=== PATIENT | male | born 2000 | race Caucasian/White ===

== ENCOUNTER 2021-04-25 15:16 | Emergency (ER) | payer OTHER, SELFPAY ==
[2021-04-25 15:17] VITALS: BP 133/71; PULSE 80; RESP 14; TEMP 36.5; O2SAT 99; BMI 24.5
[2021-04-25 15:31] LABS: Bedside Glucose 290 mg/dL (70-110)
--- NOTE | 2021-04-25 16:29 | EX.ED.DYSGE1 ---
HPI History of Present Illness Chief Complaint: Hyperglycemia Detail of Chief Complaint: Epigastric pain, nausea, vomiting Informant: patient Onset/Context/Timing Onset: Today Narrative Narrative: Patient presents via EMS for elevated blood sugar, nausea, and vomiting. Patient states he did not feel great this morning. He signed himself out of school early because he was feeling ill. He reports headache with mild body aches, epigastric pain, nausea, and vomiting. He states while driving to get having to stop to vomit. The furnace charging machine operator pulled him over and called EMS. His blood sugar was noted to be 303. Patient is a type I diabetic with an insulin pump. [facility] Medical History Diabetes type I Home Medications omeprazole 40 mg PO DAILY 14 Days #14 cap 04/25/21 [Rx Last Taken Unknown] ondansetron 4 mg PO Q8H PRN #10 tab 04/25/21 [Rx Last Taken Unknown] Allergy/AdvReac Type Severity Reaction Status Date / Time amoxicillin Allergy Hives Verified 04/25/21 15:20 Social History Smoking Status: Unknown if ever smoked ROS ROS ED Constitutional Constitutional ED: Denies chills or fever(s) Eyes Eyes: Denies blurry vision or change in vision ENT ENT ED: Reports sore throat Cardiovascular Cardiovascular: Denies chest pain or palpitations Respiratory/Chest Respiratory/Chest: Reports dyspnea; Denies cough or sputum Gastrointestinal Gastrointestinal: Reports abdominal pain, nausea and vomiting; Denies diarrhea Genitourinary Genitourinary ED: Denies dysuria Musculoskeletal Musculoskeletal: Reports myalgias; Denies arthralgias Integumentary Denies rash Neurologic Neurologic: Reports headache(s) Psychiatric Psychiatric: Denies anxiety or depression Allergic/Immunologic Allergic/Immunologic ED: Denies urticaria EXAM Physical Exam Const Vital Signs: 04/25/21 15:17 04/25/21 16:53 04/25/21 18:20 Temperature 97.7 F L Temperature Source Temporal Pulse Rate 80 Respiratory Rate 14 Blood Pressure 133/71 H 146/71 H 143/70 H Blood Pressure Mean 91 96 94 Pulse Ox 99 99 Oxygen Delivery Method Room Air Room Air Positive well nourished and well developed General Appearance ED: well developed HEENT Negative for trauma Eyes PERRL and EOMs intact bilaterally Neck supple Chest Wall inspection of chest normal and palpation of chest normal Resp normal respiratory effort and clear to auscultation bilaterally Cardio regular rate and regular rhythm GI non-tender Auscultation: hypoactive bowel sounds Palpation: soft Extremity normal to inspection Neuro oriented x3 Sensorium / Orientation: alert Psych mental status grossly normal Skin no rashes or lesions noted MDM MDM MDM Narrative Medical decision making narrative: Patient was given a liter IV fluid. He was given Zofran and Protonix. Lab work obtained. Lab Data Attestation: I reviewed the patient's lab results. Labs: Laboratory Results - last 24 hr 04/25/21 04/25/21 04/25/21 15:22 16:33 16:40 WBC 11.7 H RBC 4.97 Hgb 14.7 Hct 41.2 MCV 82.9 MCH 29.6 MCHC 35.7 RDW Std Deviation 34.7 L RDW Coeff of Marek 11.6 Plt Count 239 MPV 11.3 Immature Gran % (Auto) 0.300 Neut % (Auto) 90.0 H Lymph % (Auto) 6.2 L [place] % (Auto) 3.2 Eos % (Auto) 0.0 Baso % (Auto) 0.3 Absolute Neuts (auto) 10.6 H Absolute Lymphs (auto) 0.73 L Nucleated RBC % 0 Sodium Potassium Chloride Carbon Dioxide Anion Gap BUN Creatinine Estim Creat Clear Calc Est GFR (MDRD) Af Amer Est GFR (MDRD) Non-Af BUN/Creatinine Ratio Glucose Calcium Total Bilirubin Direct Bilirubin AST ALT Alkaline Phosphatase Total Protein Albumin Globulin Lipase Acetone Level POC Glucose 290 H 250 H 04/25/21 04/25/21 04/25/21 16:40 16:40 18:11 WBC RBC Hgb Hct MCV MCH MCHC RDW Std Deviation RDW Coeff of Marek Plt Count MPV Immature Gran % (Auto) Neut % (Auto) Lymph % (Auto) [place] % (Auto) Eos % (Auto) Baso % (Auto) Absolute Neuts (auto) Absolute Lymphs (auto) Nucleated RBC % Sodium 133 L Potassium 3.6 Chloride 99 Carbon Dioxide 25.0 Anion Gap 9 BUN 16 Creatinine 1.07 Estim Creat Clear Calc 107.43 Est GFR (MDRD) Af Amer 114 Est GFR (MDRD) Non-Af 94 BUN/Creatinine Ratio 15.0 Glucose 250 H Calcium 9.0 Total Bilirubin 0.60 Direct Bilirubin 0.16 AST 21 ALT 31 Alkaline Phosphatase 60 Total Protein 7.2 Albumin 4.2 Globulin 3.0 Lipase 56 L Acetone Level NEGATIVE POC Glucose 242 H Treatment and Re-Evaluation Comments:: Lab work reviewed. White count is mildly elevated, likely secondary to vomiting. Blood sugar is currently down to 242. Serum acetone is negative. On repeat exam patient states he feels significant improved after the IV medications. He is going to give himself a bolus of insulin from his pump for his blood sugars. Prescription for Zofran and Prilosec will be sent to pharmacy for him. Return instructions provided. Discharge Plan Triage Chief Complaint: Hyperglycemia ED Provider: Geetha Stuart Dx/Rx/DC Orders Clinical Impression: Hyperglycemia, Vomiting Instructions: ED Diabetic Hyperglycemia, ED Vomiting (Adult) Prescriptions: New ondansetron 4 mg tablet,disintegrating 4 mg PO Q8H PRN (Reason: nausea and vomiting) Qty: 10 RF: 0 omeprazole 40 mg capsule,delayed release(DR/EC) 40 mg PO DAILY 14 Days Qty: 14 RF: 0 Primary Care Provider: Care Physician,No Primary Referrals: Care Physician,No Primary [Primary Care Provider] - Activity Restrictions/Additional Instructions: Follow-up with your doctor in the next 5 to 7 days if not improving. Disposition Disposition: Home, Self Care
[2021-04-25 16:40] LABS: Bedside Glucose 250 mg/dL (70-110)
[2021-04-25] MEDS: 0.9% Normal Saline 1,000 ML 1000 ML IV (16:52)
[2021-04-25 16:53] VITALS: BP 146/71; O2SAT 99
[2021-04-25] MEDS: Ondansetron 4 MG/2 ML Vial IV (17:01)
[2021-04-25 17:03] LABS: Absolute Lymphocyte Count 0.73 X10^3/uL (0.83-4.51); Absolute Neutrophil Count 10.6 X10^3/uL (2.0-7.7); Basophil# 0.03 X10^3/uL; Basophil% 0.3 % (0-1); Hematocrit 41.2 % (40-54); Hemoglobin 14.7 g/dL (13.0-16.5); Lymphocyte # 0.73 X10^3/ul (0.83-4.51); Lymphocyte % 6.2 % (19-41); Mean Corp Hgb Conc 35.7 g/dL (32-36); Mean Corpuscular Hgb 29.6 pg (27.0-32.0); Mean Corpuscular Volume 82.9 fL (80-94); Mean Platelet Vol. 11.3 fl (6.2-12.0); Monocyte# 0.38 X10^3/uL; Monocyte% 3.2 % (0-10); NRBC Flagged by Analyzer 0 % (0-5); Neutrophil # 10.56 X10^3/uL (2.7-7.7); Platelet Count 239 K/mm3 (150-450); RBC Distribution Width CV 11.6 % (11.6-14.6); RBC Distribution Width SD 34.7 fl (35.1-43.9); Red Blood Count 4.97 M/mm3 (4.6-6.2); White Blood Count 11.7 K/mm3 (4.4-11.0)
[2021-04-25 17:23] LABS: AST(SGOT) 21 U/L (15-37); Alanine Aminotransfer ALT/SGPT 31 U/L (16-61); Albumin, Serum 4.2 g/dL (3.2-5.0); Alkaline Phosphatase 60 U/L (45-117); Anion Gap 9 (5-15); BUN 16 mg/dL (7-18); Bilirubin, Direct 0.16 mg/dL (0.00-0.30); Chloride 99 mmol/L (98-107); Creatinine, Serum 1.07 mg/dL (0.70-1.30); EST Glomerular Filtration Rate 94 mL/min (>60); Est Glom Filt Rate - Afr Amer 114 mL/min (>60); Estimated Creatinine Clearance 107.43 ml/min; Glucose 250 mg/dL (74-106); Lipase 56 U/L (73-393); Potassium 3.6 mmol/L (3.5-5.1); Protein, Total 7.2 g/dL (6.4-8.2); Sodium Level 133 mmol/L (136-145)
[2021-04-25 18:16] LABS: Bedside Glucose 242 mg/dL (70-110)
[2021-04-25 18:20] VITALS: BP 143/70
[2021-04-25 18:51] VITALS: BP 143/70; PULSE 78; RESP 16; O2SAT 98
[2021-04-25 18:54] VITALS: BP 145/78
--- NOTE | 2021-04-25 18:55 | NURSING ---
[place] [address]
== END 2021-04-25 18:56 | disposition home or self-care (01) ==
PROVIDERS: Emergency Provider Emergency Medicine; Visit Provider Emergency Medicine
DX: E10.65 Type 1 diabetes mellitus with hyperglycemia (principal); Z79.4 Long term (current) use of insulin; R11.2 Nausea with vomiting, unspecified; R10.13 Epigastric pain; Z96.41 Presence of insulin pump (external) (internal)
CPT/HCPCS: 36415; 80048; 80076; 82009; 82962; 83690; 85025; 87426; 96365; 96375; 99283; A4216; J2405